=== PATIENT | female | born 1950 | race Hispanic/Latino ===

== ENCOUNTER 2017-03-21 14:03 | Outpatient (CLI) | payer MEDICARE ==
--- NOTE | 2017-03-27 11:59 | Magnetic Resonance Report ---
BILATERAL BREAST MRI WITHOUT AND WITH CONTRAST: 03/21/17 14:03:00 CLINICAL: Newly diagnosed left breast cancer. She had a needle biopsy of a 2.1 x 1.6 x 1.3 cm left breast mass on 02/26/17. The pathology revealed invasive ductal carcinoma, Stanley grade 1 and DCIS, extensive intraductal component. COMPARISON:None.. TECHNIQUE: Axial 1.0-mm T1 without, axial high resolution 2.0-mm T2 and axial 1.0-mm dynamic Vibrant high-resolution postcontrast T1 fat saturation sequences on a 1.5 Marlyn magnet. The examination was performed with an 8 channel dedicated Sentinelle breast coil. Post processing with CAD and subtraction was performed on an m-spatial workstation. 27.0 cc of Multihance was injected without incident for the contrast portion of the exam. Consent was obtained prior to the administration of the contrast. FINDINGS: Right: Minimal background parenchymal enhancement. No mass or suspicious enhancement of the right breast. No suspicious lymph nodes. Left: Minimal background parenchymal enhancement. The known cancer is an oval irregular mass in the upper outer quadrant 10.4 cm from the nipple and 11.0 cm from the chest wall. It measures 2.2 x 1.2 x 1.0 cm and demonstrates heterogeneous enhancement with mixed kinetics, 145% peak enhancement and 25% type III washout. A second suspicious mass is identified in the upper outer quadrant 0.9 cm from the nipple and 15.2 cm from the chest wall. It is located approximately 4 cm anterior to the known cancer and measures 1.6 x 1.5 x 0.5 cm. It demonstrates heterogeneous enhancement with mixed kinetics, 125% peak enhancement and 7% type III washout. No other mass or suspicious enhancement of the left breast. No suspicious lymph nodes. IMPRESSION: A 2.2 cm known left breast cancer and one additional 1.6 cm suspicious lesion of the left breast located 4 cm anterior to the known cancer. This second lesion would be amenable to an MRI guided needle biopsy. No suspicious lymph nodes. Negative right breast. RIGHT BI-RADS 1 -- Negative LEFT BI-RADS 6 -- Known Cancer
== END 2017-03-21 14:04 | disposition home or self-care (01) ==
LOC: SPVIMAG 14:03
PROVIDERS: ATTEND Surgery
DX: C50.412 Malignant neoplasm of upper-outer quadrant of left female breast (principal)
CPT/HCPCS: 0159T; A9577; C8908; 77059

== ENCOUNTER 2017-04-02 07:49 | Outpatient (CLI) | payer MEDICARE ==
--- NOTE | 2017-04-02 11:03 | Mammography Report ---
LEFT DIGITAL DIAGNOSTIC MAMMOGRAM: 04/02/17 07:49:00 CLINICAL: For clip placement immediately status post MRI guided needle biopsy. Newly diagnosed cancer in the upper outer quadrant. COMPARISON:03/21/17 MRI FINDINGS: A second biopsy clip is now identified in the upper breast. The clips are approximately 8 cm apart. The MRI biopsy clip is more medial than expected but this may be due to rotational differences in the breast between the MRI exam and this mammogram. IMPRESSION: Concordant clip placement status post MRI biopsy. BI-RADS CATEGORY: 6--Known Cancer
--- NOTE | 2017-04-02 12:11 | Magnetic Resonance Report ---
MRI GUIDED VACUUM ASSISTED CORE BIOPSY LEFT BREAST: 04/02/17 07:49:00 CLINICAL: Known cancer in the same breast with a second suspicious lesion. COMPARISON: 03/21/17 MRI FINDINGS: Consent for the procedure was obtained. A Vibrant dynamic postcontrast series was performed on a 1.5 Marlyn magnet using an 8 channel Sentinelle dedicated breast coil. The previously identified lesion was localized and targeted using [employer] Sentinelle biopsy software. The skin was anesthetized with 1% lidocaine and a small dermatotomy was made. 2% lidocaine was administered for deeper anesthesia. 9-G biopsy was performed with an Granular vacuum assisted device. Imaging demonstrated satisfactory positioning of the probe and samples were obtained. A clip was placed after confirmation of adequate sampling. The probe was removed and hemostasis was achieved with pressure to the site. A sterile dressing was applied. The patient tolerated the procedure well and there were no apparent complications. A two view mammogram demonstrated concordant clip placement. The patient left the department in good condition with instructions for would care and follow-up. IMPRESSION: Uncomplicated MRI biopsy with clip placement left breast.
== END 2017-04-02 07:50 | disposition home or self-care (01) ==
LOC: SPVIMAG 07:49
PROVIDERS: ATTEND Surgery
DX: C50.912 Malignant neoplasm of unspecified site of left female breast (principal)
CPT/HCPCS: 19085; 88305; A9577; G0206

== ENCOUNTER 2017-04-09 08:23 | Day surgery (SDC) | payer MEDICARE ==
[~2017-04-09 08:23] MED LIST: WATER FOR IRRIG STERILE IR ONE
[2017-04-09] MEDS ORDERED: NACL BACTERIOSTATIC INFILTRATI ONE (08:59)
[2017-04-09] MEDS ORDERED: XYLOCAINE 1% 20 mL ONE (09:17)
--- NOTE | 2017-04-09 09:58 | Procedure Note ---
Date of procedure: 04/09/17 Pre-op diagnosis: lt. breast lesion Procedure: lt. needle loc Findings: n/a Anesthesia: local Surgeon: MILENA CLARK Estimated blood loss: none Pathology: none Condition: stable Disposition: same day
--- NOTE | 2017-04-09 10:06 | Mammography Report ---
Left breast needle localization: Patient presents with a marker in the lateral breast to be targeted. A lateral approach was utilized using a 5 cm Hernandez needle. Mammographic grid technique utilized. The skin was cleansed and 1% lidocaine used for local anesthesia. A needle was placed confirmed in position with mammography. Following placement of the wire and removal of the needle initial mammography demonstrates that the wire is slightly short of the target by 8 mm. No complications encountered.
--- NOTE | 2017-04-09 10:12 | Anesthesia Consultation ---
Anesthesia Consult and Med Hx Date of service: 04/09/17 - Airway Anesthetic Teeth Evaluation: Good ROM Head & Neck: Adequate Mental/Hyoid Distance: Adequate Mallampati Class: Class II Intubation Access Assessment: Probably Good - Pulmonary Exam CTA: Yes - Cardiac Exam Cardiac Exam: RRR - Pre-Operative Health Status ASA Pre-Surgery Classification: ASA3 Proposed Anesthetic Plan: General - Cardiovascular System Hx Hypertension: Yes (5 years) Hx Heart Murmur: Yes - Central Nervous System Hx Psychiatric Problems: No - Endocrine Hx Hypothyroidism: Yes - Hematic Hx Anemia: Yes (recently placed on iron vitamin) - Other Systems Hx Cancer: Yes
--- NOTE | 2017-04-09 10:12 | Anesthesia Day of Surgery ---
Anesthesia Day of Surgery - Day of Surgery Patient Examined: Yes Patient H&P Reviewed: Yes Patient is NPO: Yes
[2017-04-09] MEDS ORDERED: MARCAINE-EPI/PF 0.5%-1:200,000 INFILTRATI ONE (10:36)
[2017-04-09] MEDS ORDERED: DECADRON ONE ×2 (10:36→11:55)
[2017-04-09] MEDS ORDERED: LACTATED RINGERS 1,000 ML IV SCH (11:00)
[2017-04-09] MEDS ORDERED: ANCEF/STERILE WATER 2 GM/20 ML IV NR (11:00)
[2017-04-09] MEDS ORDERED: PEPCID PO NR (11:00)
[2017-04-09] MEDS ORDERED: VERSED IV NR (11:00)
[2017-04-09] MEDS ORDERED: DIPRIVAN 10 MG/ML IV ONE (11:18)
[2017-04-09] MEDS ORDERED: DILAUDID ONE (11:19)
[2017-04-09] MEDS ORDERED: XYLOCAINE MPF 2% ONE (11:54)
[2017-04-09] MEDS ORDERED: ePHEDrine SULFATE ONE (12:16)
[2017-04-09] MEDS ORDERED: WATER FOR IRRIG STERILE IR ONE (12:48)
[2017-04-09] MEDS ORDERED: NACL P/F VIAL (10 ML) 10 ML ONE (12:52)
--- NOTE | 2017-04-09 14:10 | Mammography Report ---
Operative specimen mammogram: A single tissue specimen is submitted it includes the targeted clip, localizing wire and a moderate amount of surrounding tissue.
[2017-04-09] MEDS ORDERED: ZOFRAN ONE (14:11)
[2017-04-09] MEDS ORDERED: TORADOL ONE (14:11)
--- NOTE | 2017-04-09 14:37 | Short Stay Summary ---
Short Stay Documentation Date of service: 04/09/17 - History H&P: obtained from office - Allergies and Medications Current Medications: Allergies azithromycin Adverse Reaction (Verified 03/27/17 12:14) Vomiting codeine Adverse Reaction (Verified 03/27/17 12:14) Vomiting Home Medications Medication Instructions Recorded Confirmed Last Taken Type Fe Fumarate/FA/Mv, Min Comb#15 1 tab PO QDAY 03/27/17 04/09/17 04/07/17 09:00 History [Hemocyte Plus] Levothyroxine [Synthroid] 88 mcg PO QAM 03/27/17 04/09/17 04/08/17 09:00 History Losartan/Hydrochlorothiazide 1 each PO DAILY 03/27/17 04/09/17 Unknown History [Losartan-Hctz 100-25 mg Tab] Ciprofloxacin HCl [Cipro] 500 mg PO BID 04/09/17 04/09/17 04/08/17 19:00 History Norvasc 20 mg PO DAILY 04/09/17 04/09/17 04/08/17 23:00 History RX: Ibuprofen 800 mg PO Q8HR PRN #30 tablet 04/09/17 Unknown Rx metroNIDAZOLE [Flagyl TAB] 500 mg PO TID 04/09/17 04/09/17 04/08/17 23:00 History Active Medications Midazolam HCl (Versed) 2 mg IV PREOP NR Stop: 04/09/17 23:59 Last Admin: 04/09/17 10:50 Dose: 2 mg - Brief post op/procedure progress note Date of procedure: 04/09/17 Pre-op diagnosis: Left breast cancer of the upper outer quadrant Post-op diagnosis: same Procedure: Left breast needle localization partial mastectomy with SLNB Anesthesia: GETA Findings: Wire and clip present within radiograph specimen; 3 SLNs Surgeon: DAT POLLOCK Estimated blood loss: minimal Pathology: list (partial mastectomy and SLNB) Specimen disposition: to lab Condition: stable - Disposition Condition at discharge: Good Disposition: DC-01 TO HOME OR SELFCARE Short Stay Discharge Plan Activity: other (no heavy lifting) Diet: regular Wound: other (keep incision clean and dry and may shower in 24 hours; no baths, pools or lakes; do not rub or scrub incision) Follow up with: DAT POLLOCK MD [Staff Physician] - 7 Days Prescriptions: RX: Ibuprofen 800 mg PO Q8HR PRN #30 tablet PRN Reason: Pain
--- NOTE | 2017-04-09 14:44 | Operative Report ---
Operative Report Operative Report: Date of service: 04/09/2017 Preoperative diagnosis: Left breast cancer at upper outer quadrant Postoperative diagnosis: Same Procedure: Left needle localization partial mastectomy and sentinel lymph node biopsy Surgeon: Melissa Campbell M.D. Asst.: Mrs. Pelaez Anesthesia: Gen. Findings: Partial mastectomy with clip and wire present. 3 sentinel lymph nodes identified Consultations: None Drains: None Estimated blood loss: Less than 50 mL Disposition: PACU in good condition Indications for operative procedure: This is a 66-year-old lady with stage II left breast cancer of the upper outer quadrant. Recommendations were to proceed with partial mastectomy with sentinel lymph node biopsy. Patient wished to proceed with the above procedure. Procedure in detail: Radiology placed localizing wire to localize area of known left breast cancer of the upper outer quadrant. Anesthesia placed a left pectoral muscle block. The patient was taken to the operating room and was laid supine. Gen. anesthesia was administered. The nipple was injected with radioisotope. The left breast and axilla were prepped and draped in the normal sterile operative fashion. Timeout was performed. Gamma probe was inserted into the axilla with the location of sentinel lymph node biopsy. Skin incision was made with a 15 blade knife in the axilla with dissection taken down through the subcutaneous tissues. The axillary fascia was opened. The gamma probed was inserted into the axilla and 3 sentinel lymph nodes were appropriately identified and dissected free and sent to pathology for permanent processing. Hemostasis was obtained with the aid of the Bovie cautery. Axillary cavity was irrigated and suctioned. Axillary fascia was approximated and closed using interrupted 3-0 Vicryl and the skin brought together and closed using a running 4-0 Monocryl followed by skin affix. Attention was then taken towards the left breast. Ultrasound was used to localize area of concern. The wire was notified. Lateral breast incision was made with a 15 blade knife and dissection taken down to subcutaneous tissues. First began with raising of the lateral flap taken down posteriorly and removed the wire from the skin. They continue with the raising of the superior flap taken down posteriorly to the pectoralis muscle, follwed by raising of reason of the superior flap and inferior flap taken down posteriorly to the pectoralis muscle. The partial mastectomy was then removed from the pectoralis muscle without incident. Specimen was appropriately marked. The specimen was sent to radiology with clip and wire present and then sent to pathology. Hemostasis was obtained with the Bovie cautery. The posterior breast tissues were approximated and closed using interrupted 3-0 Vicryl and the skin closed brought together and closed using a 4-0 Monocryl followed by skin affix. She tolerated surgery very well and was awakened from anesthesia without any complications and transported to PACU in good condition.
--- NOTE | 2017-04-09 15:15 | Post Anesthesia Evaluation ---
- Post Anesthesia Evaluation Patient Participated: Yes Airway Patent: Yes Stable Respiratory Function: Yes Temp > 96.8F: Yes Pain Manageable: Yes Adequeate Hydration: Yes Anesthesia Complications: No
[2017-04-09 18:14] VITALS: BP 130/69
== END 2017-04-09 16:25 | disposition home or self-care (01) ==
LOC: OR 08:23
PROVIDERS: ATTEND Surgery
DX: C50.412 Malignant neoplasm of upper-outer quadrant of left female breast (principal); I10 Essential (primary) hypertension; E03.9 Hypothyroidism, unspecified; D64.9 Anemia, unspecified; Z98.51 Tubal ligation status; Z98.890 Other specified postprocedural states; Z86.711 Personal history of pulmonary embolism; Z80.3 Family history of malignant neoplasm of breast; Z88.6 Allergy status to analgesic agent; Z88.1 Allergy status to other antibiotic agents
CPT/HCPCS: 19281; 19301; 38525; 76098; 78800; 88307; 88333; 88342; A9541; J0690; J1100; J1170; J1885; J2250; J2405; J2704; J7120

== ENCOUNTER 2017-04-30 05:56 | Day surgery (SDC) | payer MEDICARE ==
--- NOTE | 2017-04-30 07:10 | Anesthesia Day of Surgery ---
Anesthesia Day of Surgery - Day of Surgery Patient Examined: Yes Patient H&P Reviewed: Yes Patient is NPO: Yes
--- NOTE | 2017-04-30 07:10 | Anesthesia Consultation ---
Anesthesia Consult and Med Hx Date of service: 04/30/17 - Airway Anesthetic Teeth Evaluation: Good ROM Head & Neck: Adequate Mental/Hyoid Distance: Adequate Mallampati Class: Class II Intubation Access Assessment: Probably Good - Pulmonary Exam CTA: Yes - Cardiac Exam Cardiac Exam: RRR - Pre-Operative Health Status ASA Pre-Surgery Classification: ASA3 Proposed Anesthetic Plan: General - Cardiovascular System Hx Hypertension: Yes (5 years) Hx Heart Murmur: Yes - Central Nervous System Hx Psychiatric Problems: No - Endocrine Hx Hypothyroidism: Yes - Hematic Hx Anemia: Yes (recently placed on iron vitamin) - Other Systems Hx Alcohol Use: No Hx Substance Use: No Hx Cancer: Yes - Additional Comments Anesthesia Medical History Comments: Recent problems with colitis. Had colonoscopy done recently and had what appeares to be a vasovagal episode. She had a complete cardiac workup post procedure that was negative per pt report.
[2017-04-30] MEDS ORDERED: NACL BACTERIOSTATIC INFILTRATI ONE (07:12)
[2017-04-30] MEDS ORDERED: PEPCID IV NR (07:30)
[2017-04-30] MEDS ORDERED: XYLOCAINE MPF 2% ONE (07:30)
[2017-04-30] MEDS ORDERED: ZOFRAN IV PRN (07:30)
[2017-04-30] MEDS ORDERED: MARCAINE 0.25% INFILTRATI ONE ×2 (07:42→08:26)
[2017-04-30] MEDS ORDERED: XYLOCAINE 1% 20 mL INFILTRATI ONE (07:42)
[2017-04-30] MEDS ORDERED: WATER FOR IRRIG STERILE IR ONE (07:42)
[2017-04-30] MEDS ORDERED: ANCEF/STERILE WATER 2 GM/20 ML IV NR (08:00)
[2017-04-30] MEDS ORDERED: ZOFRAN IV NR (08:00)
[2017-04-30] MEDS ORDERED: VERSED IV NR (08:00)
[2017-04-30] MEDS ORDERED: PERCOCET 5/325 PO PRN (08:00)
[2017-04-30] MEDS ORDERED: LACTATED RINGERS 1,000 ML IV SCH (08:00)
[2017-04-30] MEDS ORDERED: XYLOCAINE 1% 20 mL ONE (08:26)
[2017-04-30] MEDS ORDERED: ePHEDrine SULFATE ONE (08:31)
[2017-04-30] MEDS ORDERED: DECADRON ONE (08:41)
[2017-04-30] MEDS ORDERED: ZOFRAN ONE (08:41)
[2017-04-30] MEDS ORDERED: DIPRIVAN 10 MG/ML IV ONE (08:43)
[2017-04-30] MEDS ORDERED: DILAUDID ONE (08:43)
--- NOTE | 2017-04-30 09:27 | Short Stay Summary ---
Short Stay Documentation Date of service: 04/30/17 - History H&P: obtained from office - Allergies and Medications Current Medications: Allergies codeine Adverse Reaction (Verified 04/22/17 10:10) Vomiting erythromycin base Adverse Reaction (Verified 04/30/17 06:44) Diarrhea Home Medications Medication Instructions Recorded Confirmed Last Taken Type Fe Fumarate/FA/Mv, Min Comb#15 1 tab PO QDAY 03/27/17 04/30/17 6 Days Ago History [Hemocyte Plus] Levothyroxine [Synthroid] 88 mcg PO QAM 03/27/17 04/30/17 04/29/17 History Losartan/Hydrochlorothiazide 1 each PO DAILY 03/27/17 04/30/17 3 Weeks Ago History [Losartan-Hctz 100-25 mg Tab] Norvasc 20 mg PO DAILY 04/09/17 04/30/17 04/29/17 23:00 History Pantoprazole [Protonix] 40 mg PO QDAY 04/22/17 04/30/17 04/29/17 History Active Medications Cefazolin Sodium (Ancef/Sterile Water 2 Gm/20 Ml) 2 gm IV PREOP NR Stop: 04/30/17 10:00 Famotidine (Pepcid) 20 mg IV PREOP NR Stop: 04/30/17 09:30 Last Admin: 04/30/17 07:41 Dose: 20 mg Hydromorphone HCl (Dilaudid) 0.5 mg IV Q10MIN PRN PRN Reason: Pain , Severe (7-10) Stop: 04/30/17 15:00 Lactated Ringer's (Lactated Ringers) 1,000 mls @ 100 mls/hr IV DIRECT MARY Last Admin: 04/30/17 07:40 Dose: 100 mls/hr Midazolam HCl (Versed) 2 mg IV PREOP NR Stop: 04/30/17 23:59 Last Admin: 04/30/17 07:43 Dose: 2 mg Ondansetron HCl (Zofran) 4 mg IV PREOP NR Stop: 04/30/17 18:00 Last Admin: 04/30/17 07:45 Dose: 4 mg Oxycodone/Acetaminophen (Percocet 5/325) 1 tab PO ONCE PRN PRN Reason: Pain, Moderate (4-6) Stop: 04/30/17 14:00 - Brief post op/procedure progress note Date of procedure: 04/30/17 Pre-op diagnosis: Left cancer of the upper outer quadrant with close surgical margins Post-op diagnosis: same Procedure: Left breast margin Anesthesia: GETA Findings: Left upper outer quadrant margin revision Surgeon: DAT POLLOCK Estimated blood loss: minimal Pathology: list (left breast margin revision) Specimen disposition: to lab Condition: stable - Disposition Condition at discharge: Good Disposition: - TO HOME OR SELFCARE Short Stay Discharge Plan Activity: other (no heavy lifting) Diet: regular Wound: other (keep incision clean and dry; may shower in 24 hours; no baths, pools or lakes; do not rub or scrub incision) Follow up with: FAITH TORRE MD [Primary Care Provider] - 7 Days DAT POLLOCK MD [Staff Physician] - 7 Days
--- NOTE | 2017-04-30 09:36 | Operative Report ---
Operative Report Operative Report: Date of Service: 04/30/2017 Preoperative diagnosis: Left breast cancer of the upper outer quadrant with close surgical margins Postoperative diagnosis: Same Procedure: Left breast margin revision Surgeon: Melissa Campbell M.D. Anesthesia: Gen. Findings: Posterior margin revised with dissection taken down to the pectoralis muscle Complications: None Drains: None Estimated blood loss: Minimal Disposition: PACU in good condition Indications for operative procedure: This is a 66-year-old lady who recently underwent a left partial mastectomy and sentinel node biopsy with close surgical margin of the posterior/deep margin with findings of extensive DCIS. Recommendations were for margin revision of the posterior margin. Patient wished to proceed with the above procedure. Procedure in detail: The patient was taken to the operating room and was placed supine. General anesthesia was administer. The left breast was prepped and draped in the normal operative steril fashion. Incision was made through prior left upper quadrant surgical incision. Seroma cavity was encountered and drained. The subcutaneous tissues were opened. The posterior margin was revised of the deep/posterior breast tissue and pectoralis fascia removed from the pectoralis muscle. The margin was appropriately marked and sent to pathology. Breast cavity was anesthetized with 1% lidocaine mix with quarter percent Marcaine. The posterior breast tissue were approximated and closed using interrupted 3-0 Vicryl and the skin brought together and closed using a running 4-0 Monocryl followed by skin affix. She tolerated surgery very well and was awakened from anesthesia without any complications and transported to PACU in good condition.
[2017-04-30] MEDS: DILAUDID IV PRN ×3 (10:00→10:27)
[2017-04-30 11:29] VITALS: BP 142/72
== END 2017-04-30 11:58 | disposition home or self-care (01) ==
LOC: OR 05:56
PROVIDERS: ATTEND Surgery
DX: C50.412 Malignant neoplasm of upper-outer quadrant of left female breast (principal); Z17.0 Estrogen receptor positive status [ER+]; N61.0 Mastitis without abscess; E03.9 Hypothyroidism, unspecified; I10 Essential (primary) hypertension; Z90.12 Acquired absence of left breast and nipple; Z98.51 Tubal ligation status; Z98.890 Other specified postprocedural states; Z85.9 Personal history of malignant neoplasm, unspecified; Z80.3 Family history of malignant neoplasm of breast; Z88.5 Allergy status to narcotic agent; Z88.1 Allergy status to other antibiotic agents; Z79.899 Other long term (current) drug therapy
CPT/HCPCS: 19301; 88307; J0690; J1100; J1170; J2250; J2405; J2704; J7120